=== PATIENT | female | born 1960 | race African-American/Black ===

== ENCOUNTER 2018-04-24 17:15 | Emergency (ER) | payer OTHER, MEDICAID, SELFPAY ==
[2018-04-24 17:24] VITALS: BP 122/81; PULSE 70; RESP 12; TEMP 36; O2SAT 99
--- NOTE | 2018-04-24 17:34 | ED_ITS ---
HPI - Abdominal Pain <INDER Moncada - Last Filed: 04/24/18 21:35> General Chief Complaint: Abdominal Pain Stated Complaint: severe pain in stomach, fluid on right knee Time Seen by Provider: 04/24/18 17:19 Source: patient Mode of arrival: ambulatory Limitations: no limitations History of Present Illness HPI narrative: 57-year-old healthy female that is an everyday smoker for complaint of pain to her abdomen over the last several days. She states that she is tolerating p.o. fluid and intake. she states her last bowel movement was earlier today and was unremarkable. She states her last bowel movement prior that was several days prior. She denies any fevers or chills. No urinary symptoms. She denies any vaginal discharge or bleeding. She denies any stressors or relievers of her discomfort. She also reports she has right knee pain for the past year. She states she had a ground level fall 1 year ago for her knee and has not seen her provider for the knee pain. She reports increased pain with palpation of the anterior portion of the right knee. She reports that she is ambulatory. MD complaint: abdominal pain Related Data Allergies Allergy/AdvReac Type Severity Reaction Status Date / Time No Known Drug Allergies Allergy Verified 04/24/18 17:29 Review of Systems <INDER Moncada - Last Filed: 04/24/18 21:35> Constitutional Denies chills, Denies fever(s), Denies lethargy and Denies weakness Eyes Denies change in vision, Denies eye discharge, Denies irritation and Denies loss of vision ENT Ears, Nose, Mouth, and Throat: Denies change in voice, Denies neck pain and Denies sore throat Cardiovascular Denies chest pain, Denies irregular heart rhythm, Denies lightheadedness, Denies palpitations, Denies dyspnea, Denies dyspnea on exertion and Denies orthopnea Respiratory Denies cough, Denies dyspnea, Denies dyspnea on exertion and Denies wheezing Gastrointestinal Comments: Abdominal pain Genitourinary Denies hematuria, Denies flank pain, Denies urinary incontinence and Denies urinary urgency Musculoskeletal Denies neck pain Comments: ongoing pain to right knee Integumentary/Breasts Denies pruritus, Denies erythema, Denies rash and Denies wounds Neurologic Denies confusion, Denies loss of vision and Denies weakness Psychiatric Denies anxiety, Denies confusion, Denies depression, Denies homicidal ideation and Denies suicidal ideation Endocrine Denies palpitations Hematologic/Lymphatic Denies easy bruising Allergic/Immunologic Denies wheezing Exam <INDER Moncada - Last Filed: 04/24/18 21:35> Initial Vital Signs Initial Vital Signs: Vital Signs Temperature 96.8 F L 04/24/18 17:24 Pulse Rate 70 04/24/18 17:24 Respiratory Rate 12 04/24/18 17:24 Blood Pressure 122/81 04/24/18 17:24 Pulse Oximetry 99 04/24/18 17:24 Const General: cooperative and well developed Nutritional Appearance: well nourished Orientation: alert, awake, oriented x3 and not confused HENMT Mouth: oral mucosae normal, oropharynx normal and moist mucous membranes Eyes Conjunctivae: conjunctivae normal Sclera: sclerae normal Pupils: PERRL EOM: EOM intact bilaterally Neck Neck: normal visual inspection, trachea midline, No lymphadenopathy, No midline deformity and No JVD Lymphatic: No lymphedema Resp Effort & Inspection: normal respiratory effort, able to speak in complete sentences, no respiratory distress and no use of accessory muscles Auscultation: clear to auscultation bilaterally, no rales, no rhonchi and no wheezes Cardio Rate: regular rate Rhythm: regular rhythm Heart Sounds: no click, no gallops, no murmurs and no rubs Pulses: normal peripheral pulses GI Inspection: non-distended Palpation: soft, no hepatosplenomegaly, No guarding, No pulsatile mass and tender ( generalized) Auscultation: normal bowel sounds Neuro General: alert, oriented x3, gait normal and no focal motor deficits Speech: speech normal Extrem Other: right knee with no swelling and no ecchymosis no signs of trauma. Distal sensation is intact. Distal range of motion is intact. Distal pulses are intact <Golden Garcia DO - Last Filed: 04/24/18 21:48> Initial Vital Signs Initial Vital Signs: Vital Signs Temperature 96.8 F L 04/24/18 17:24 Pulse Rate 70 04/24/18 17:24 Respiratory Rate 12 04/24/18 17:24 Blood Pressure 122/81 04/24/18 17:24 Pulse Oximetry 99 04/24/18 17:24 Course <INDER Moncada - Last Filed: 04/24/18 21:35> Orders Ordered: ED Orders 04/24/18 17:45 Complete Blood Count AUTO DIFF Stat Comprehensive Metabolic Panel Stat Lipase Stat 04/24/18 17:53 XR knee RT 3V Stat 04/24/18 17:54 CT abdomen pelvis w con Stat 04/24/18 20:07 Urine Microscopic Stat Discontinued Medications Sodium Chloride (Normal Saline 0.9%) 1,000 mls @ 1,000 mls/hr IV BOLUS ONE Stop: 04/24/18 18:52 Last Infusion: 04/24/18 20:00 Dose: 0 mls/hr Admin: 04/24/18 18:50 Dose: 1,000 mls/hr Vital Signs - 8 hr 04/24/18 17:24 04/24/18 18:00 04/24/18 19:00 Temperature 96.8 F L Pulse Rate 70 81 65 Respiratory Rate 12 Blood Pressure 122/81 Blood Pressure [Left Arm] 126/64 112/58 L Pulse Oximetry 99 98 100 04/24/18 20:35 Temperature 98.7 F Pulse Rate 78 Respiratory Rate 18 Blood Pressure 122/64 Blood Pressure [Left Arm] Pulse Oximetry 100 <Golden Garcia DO - Last Filed: 04/24/18 21:48> Orders Ordered: ED Orders 04/24/18 17:45 Complete Blood Count AUTO DIFF Stat Comprehensive Metabolic Panel Stat Lipase Stat 04/24/18 17:53 XR knee RT 3V Stat 04/24/18 17:54 CT abdomen pelvis w con Stat 04/24/18 20:07 Urine Microscopic Stat Discontinued Medications Sodium Chloride (Normal Saline 0.9%) 1,000 mls @ 1,000 mls/hr IV BOLUS ONE Stop: 04/24/18 18:52 Last Infusion: 04/24/18 20:00 Dose: 0 mls/hr Admin: 04/24/18 18:50 Dose: 1,000 mls/hr Vital Signs - 8 hr 04/24/18 17:24 04/24/18 18:00 04/24/18 19:00 Temperature 96.8 F L Pulse Rate 70 81 65 Respiratory Rate 12 Blood Pressure 122/81 Blood Pressure [Left Arm] 126/64 112/58 L Pulse Oximetry 99 98 100 04/24/18 20:35 Temperature 98.7 F Pulse Rate 78 Respiratory Rate 18 Blood Pressure 122/64 Blood Pressure [Left Arm] Pulse Oximetry 100 MDM - Abdominal Pain <Seng MckenzieINDER - Last Filed: 04/24/18 21:35> Lab Data Result diagrams: 04/24/18 17:45 04/24/18 17:45 Lab Results 04/24/18 04/24/18 04/24/18 Range/Units 17:45 17:45 20:07 WBC 14.5 H (4.5-11.0) X10^3/uL RBC 4.42 (4.0-5.2) X10^6/uL Hgb 12.2 (12.0-16.0) g/dL Hct 38.4 (36-46) % MCV 86.9 (80-100) fL MCH 27.7 (26-34) PG MCHC 31.8 (30-36) % RDW 13.4 (11.6-14.8) % Plt Count 309 (150-400) X10^3/uL Neut % (Auto) 49.3 L (50-75) % Lymph % (Auto) 41.6 H (25-40) % Beckham % (Auto) 5.4 (3-14) % Eos % (Auto) 3.0 (2-4) % Baso % (Auto) 0.7 (0-2) % Neut # (Auto) 7100 H (3446-1745) /uL Sodium 142 (137-145) mmol/L Potassium 4.0 (3.4-5.1) mmol/L Chloride 108 H (98-107) mmol/L Carbon Dioxide 24 (22-32) mmol/L BUN 13 (7-17) mg/dL Creatinine 0.70 (0.52-1.04) mg/dL Estimated GFR > 60.0 (>60) mL/min BUN/Creatinine Ratio 18.6 (6-22) Glucose 94 (70-100) mg/dL Calcium 8.8 (8.4-10.2) mg/dL Total Bilirubin 0.3 (0.2-1.3) mg/dL AST 30 (14-36) IU/L ALT 26 (9-52) IU/L Alkaline Phosphatase 111 (38-126) U/L Total Protein 7.1 (6.3-8.2) g/dL Albumin 4.0 (3.5-5.0) g/dL Globulin 3.1 (1.7-4.1) g/dL Albumin/Globulin Ratio 1.3 (1.0-2.8) Lipase 65 (23-300) U/L Urine RBC None seen (0-5/HPF) Urine WBC 5-10/hpf H (0-5/HPF) Ur Squamous Epith Cells 0-1 /hpf Urine Bacteria None seen (None) Ur Culture Indicated? Specimen cultured Micro UA Comment Not Reportable Point of care testing: Urine Dip Bedside Urine Glucose Negative Bedside Urine Bilirubin - Negative Bedside Urine Ketone - Negative Urine Specific [place] 1.015 Bedside Urine Occult Blood - Negative Bedside Urine pH 6.0 Bedside Urine Protein - Negative Bedside Urine Urobilinogen - Negative Bedside Urine Nitrite - Negative Bedside Urine Leukocytes + 70 Esterase Imaging Data R knee: Radiologist's impression: [address] [address] XRay Report Signed Patient: Shailesh Swan#: [id number] : 1Acct:[id number] Age/Sex: 57 / FDate of Service: 04/24/18 Loc: ED Accession Number: [id number] Procedure: XR knee RT 3V Ordering Provider: Seng Mckenzie PROCEDURE: XR KNEE RT 3V INDICATIONS: pain to the right knee after ground level fall several months TECHNIQUE: 3 views of the knee were acquired. COMPARISON: None. FINDINGS: Bones: No fractures or dislocations. No suspicious bony lesions. There is a small patellar enthesophyte. Soft tissues: There is a small joint effusion. No suspicious soft tissue calcifications. IMPRESSION: 1. Small joint effusion. No acute fracture dislocation. If pain persists, repeat study in 5-7 days is recommended to exclude occult fracture. Dictated by: Merissa Berg M.D. on 04/24/2018 at 18:19 Approved by: Merissa Berg M.D. on 04/24/2018 at 18:21 [facility] Narrative Medical decision making narrative: x-ray the right knee was obtained and shows some joint effusion otherwise no fractures or dislocations. Will have patient follow up with primary care provider for further evaluation may need MRI of the right knee for further evaluation to rule out soft tissue injury. CT scan of the abdomen shows some inflammation and thickening of stomach wallto the distal stomach wall unknown etiology differential could include lymphoma or linitis plastica. While patient follow up with primary care provider next week for referral to Gastroenterology. no other acute findings are seen on CT. CBC shows mildly elevated white count of 14.5. suspect she may have some type of viral component at this point. Urinalysis shows WBCs of 5 to 10 however patient denies having any urinary symptoms. will have patient use MiraLax to help with any constipation issues that she may have in the future. Follow up with primary care provider next week for re-evaluation. <Golden Garcia, DO - Last Filed: 04/24/18 21:48> Lab Data Lab Results 04/24/18 04/24/18 04/24/18 Range/Units 17:45 17:45 20:07 WBC 14.5 H (4.5-11.0) X10^3/uL RBC 4.42 (4.0-5.2) X10^6/uL Hgb 12.2 (12.0-16.0) g/dL Hct 38.4 (36-46) % MCV 86.9 (80-100) fL MCH 27.7 (26-34) PG MCHC 31.8 (30-36) % RDW 13.4 (11.6-14.8) % Plt Count 309 (150-400) X10^3/uL Neut % (Auto) 49.3 L (50-75) % Lymph % (Auto) 41.6 H (25-40) % Beckham % (Auto) 5.4 (3-14) % Eos % (Auto) 3.0 (2-4) % Baso % (Auto) 0.7 (0-2) % Neut # (Auto) 7100 H (5129-4532) /uL Sodium 142 (137-145) mmol/L Potassium 4.0 (3.4-5.1) mmol/L Chloride 108 H (98-107) mmol/L Carbon Dioxide 24 (22-32) mmol/L BUN 13 (7-17) mg/dL Creatinine 0.70 (0.52-1.04) mg/dL Estimated GFR > 60.0 (>60) mL/min BUN/Creatinine Ratio 18.6 (6-22) Glucose 94 (70-100) mg/dL Calcium 8.8 (8.4-10.2) mg/dL Total Bilirubin 0.3 (0.2-1.3) mg/dL AST 30 (14-36) IU/L ALT 26 (9-52) IU/L Alkaline Phosphatase 111 (38-126) U/L Total Protein 7.1 (6.3-8.2) g/dL Albumin 4.0 (3.5-5.0) g/dL Globulin 3.1 (1.7-4.1) g/dL Albumin/Globulin Ratio 1.3 (1.0-2.8) Lipase 65 (23-300) U/L Urine RBC None seen (0-5/HPF) Urine WBC 5-10/hpf H (0-5/HPF) Ur Squamous Epith Cells 0-1 /hpf Urine Bacteria None seen (None) Ur Culture Indicated? Specimen cultured Micro UA Comment Not Reportable Point of care testing: Urine Dip Bedside Urine Glucose Negative Bedside Urine Bilirubin - Negative Bedside Urine Ketone - Negative Urine Specific [place] 1.015 Bedside Urine Occult Blood - Negative Bedside Urine pH 6.0 Bedside Urine Protein - Negative Bedside Urine Urobilinogen - Negative Bedside Urine Nitrite - Negative Bedside Urine Leukocytes + 70 Esterase Discharge Plan Departure Patient Disposition: Home Clinical Impression: Chronic knee pain, Abdominal pain Discharge Date/Time: 04/24/18 20:36 Interventions: ED Discharge Assessment Last Done: 04/24/18 20:35 Instructions: DI for Abdominal Pain-Adult Activity Restrictions/Additional Instructions: X-ray of the right knee was obtained was negative for any acute findings. Due to having chronic pain to the right knee recommend follow up with primary care provider and obtaining MRI for further evaluation of the soft tissues of the knee. CT of the abdomen shows areas of thickening of the stomach wall of unsure etiology. Recommend follow up with primary care provider for referral to Gastroenterology for further evaluation. No for other acute findings are seen in the abdomen. Use MiraLax [id number] as needed for any constipation, plenty of fluids. Use [id number] Tylenol Motrin as needed for your knee pain. For any worsening symptoms return to the emergency room. Referrals: [facility] [Provider Group] <Golden Garcia DO - Last Filed: 04/24/18 21:48> Cosign ED Attending Alba Attestation: I was available for consultation during this patient's emergency department encounter
--- NOTE | 2018-04-24 17:53 | DI.RAD.S_ITS ---
PROCEDURE: XR KNEE RT 3V INDICATIONS: pain to the right knee after ground level fall several months TECHNIQUE: 3 views of the knee were acquired. COMPARISON: None. FINDINGS: Bones: No fractures or dislocations. No suspicious bony lesions. There is a small patellar enthesophyte. Soft tissues: There is a small joint effusion. No suspicious soft tissue calcifications. IMPRESSION: 1. Small joint effusion. No acute fracture dislocation. If pain persists, repeat study in 5-7 days is recommended to exclude occult fracture. Dictated by: Merissa Berg M.D. on 04/24/2018 at 18:19 Approved by: Merissa Berg M.D. on 04/24/2018 at 18:21
--- NOTE | 2018-04-24 17:54 | DI.CT.S_ITS ---
PROCEDURE: CT ABDOMEN PELVIS W CON INDICATIONS: generalized abdominal pain TECHNIQUE: After the administration of intravenous contrast, 5 mm thick sections acquired from the diaphragm to the symphysis. 5 mm coronal and sagittal reformats were acquired. For radiation dose reduction, the following was used: automated exposure control, adjustment of mA and/or kV according to patient size. COMPARISON: None. FINDINGS: Image quality: Excellent. ABDOMEN: Lung bases: Lung bases are clear. Heart size is normal. Solid organs: Liver is normal in size and enhancement. Gallbladder is unremarkable. Biliary system is non dilated. Pancreas enhances normally. Spleen is normal in size and enhancement. No adrenal nodules. Kidneys demonstrate normal size and enhancement, without hydronephrosis. Peritoneum and bowel: The gastric antrum has a thickened, hypoattenuating appearance with respect to the more superior aspect of the stomach. Bowel loops demonstrate otherwise normal wall thickness and caliber. The appendix is thin walled and gas filled. No free fluid or air. Nodes and vessels: No retroperitoneal or mesenteric adenopathy by size criteria. Aorta and inferior vena cava are normal in size. Miscellaneous: No ventral hernias. PELVIS: Genitourinary: Bladder wall thickness is normal. Miscellaneous: No inguinal hernias or adenopathy. Bones: No suspicious bony lesions. No vertebral body compression fractures. IMPRESSION: 1. Abnormal thickening of the gastric antrum. The significance of this finding is unclear. Differential considerations include an infiltrative process such as lymphoma or linitis plastica. Gastroenterology consultation recommended. 2. No other acute intra-abdominal findings. Normal appendix. These findings were discussed with INDER Moncada at 6:38 PM on 04/24/18. Dictated by: Merissa Berg M.D. on 04/24/2018 at 18:31 Approved by: Merissa Berg M.D. on 04/24/2018 at 19:52
[2018-04-24 18:00] VITALS: BP 126/64; PULSE 81; O2SAT 98
[2018-04-24 18:00] LABS: Add Manual Diff / Slide Review NO; Basophils Percent Auto 0.7 % (0-2); Hematocrit 38.4 % (36-46); Hemoglobin 12.2 g/dL (12.0-16.0); Lymphocytes Percent Auto 41.6 % (25-40); Mean Corpuscular HGB Conc 31.8 % (30-36); Mean Corpuscular Hemoglobin 27.7 PG (26-34); Mean Corpuscular Volume 86.9 fL (80-100); Monocytes Percent Auto 5.4 % (3-14); Neutrophils Absolute Auto 7100 /uL (3000-5900); Neutrophils Percent Auto 49.3 % (50-75); Platelet Count 309 X10^3/uL (150-400); Red Blood Cell Count 4.42 X10^6/uL (4.0-5.2); Red Cell Distribution Width 13.4 % (11.6-14.8); White Blood Cell Count 14.5 X10^3/uL (4.5-11.0)
[2018-04-24 18:06] LABS: Alanine Aminotransferase 26 IU/L (9-52); Albumin Globulin Ratio 1.3 (1.0-2.8); Alkaline Phosphatase 111 U/L (38-126); Aspartate Aminotransferase 30 IU/L (14-36); BUN Creatinine Ratio 18.6 (6-22); Bilirubin Total 0.3 mg/dL (0.2-1.3); Blood Urea Nitrogen 13 mg/dL (7-17); Calcium 8.8 mg/dL (8.4-10.2); Carbon Dioxide 24 mmol/L (22-32); Chloride 108 mmol/L (98-107); Estimated Glomerular Filt Rate > 60.0 mL/min (>60); Globulin 3.1 g/dL (1.7-4.1); Glucose 94 mg/dL (70-100); HEMOLYSIS < 15 (0-50); Lipase 65 U/L (23-300); Sodium 142 mmol/L (137-145); Total Protein 7.1 g/dL (6.3-8.2)
[2018-04-24] MEDS: SODIUM CHLORIDE 0.9% 1,000 ML 1000 ML IV (18:50)
[2018-04-24 19:00] VITALS: BP 112/58; PULSE 65; O2SAT 100
[2018-04-24 20:09] LABS: Bacteria Urine None Seen; RBC Urine None Seen (0-5/HPF)
[2018-04-24 20:18] LABS: Culture Indicated Urine Specimen Cultured; Squamous Epithelial Cell Urine 0-1 /HPF; WBC Urine 5-10/HPF (0-5/HPF)
[2018-04-24 20:35] VITALS: BP 122/64; PULSE 78; RESP 18; TEMP 37.1; O2SAT 100
== END 2018-04-24 20:36 | disposition home or self-care (01) ==
PROVIDERS: Emergency Provider Nurse Practitioner Family
DX: R10.9 Unspecified abdominal pain (principal); M25.569 Pain in unspecified knee; G89.29 Other chronic pain
CPT/HCPCS: 36591; 73562; 74177; 80053; 81003; 81015; 83690; 85025; 87086; 96360; 99283; 99285; Q9967